=== PATIENT | male | born 1975 | race Caucasian/White ===

== ENCOUNTER 2019-05-19 11:56 | Emergency (ER) | payer OTHER ==
[~2019-05-19 11:56] MED LIST: HYDR-3164 PO
[2019-05-19 12:04] VITALS: BP 154/78
--- NOTE | 2019-05-19 12:31 | RAD ---
Exam performed: 2 views of the chest. Indication: Cough, shortness of air, sinus infection for 2 weeks Date of Service: 05/19/2019 12:10 PM . Comparison : Two-view chest from 07/01/2014. Findings: PA and lateral radiographs of the chest reveal a normal cardiomediastinal contour. The lungs are clear. No pleural fluid is seen. The visualized osseous structures are unremarkable. Impression: No acute cardiopulmonary process seen. Electronically signed by: Megha Resendiz MD (05/19/2019 12:28 PM) [facility]
[2019-05-19] MEDS ORDERED: AMOX1TAB61 PO (12:33)
[2019-05-19] MEDS ORDERED: PRED50TA PO (12:33)
[2019-05-19] MEDS ORDERED: PROVENTIL HFA6.7 G2 INH (12:33)
[2019-05-19] MEDS ORDERED: BENZ100C PO (12:33)
--- NOTE | 2019-05-19 12:34 | PHYS DOC ---
Past Medical History Past Medical History: High Cholesterol, Hypertension, Other Additional Past Medical Histor: BPH Past Surgical History: Other Additional Past Surgical Histo: left shoulder Alcohol Use: None Drug Use: None Adult General Chief Complaint Chief Complaint: COUGH HPI HPI Patient is a 43 year old male with history of high cholesterol, hypertension, smoking, who presents to the ED today complaining of cough productive in nature with nasal congestion that began 2 weeks ago. Patient believes he has a sinus infection. He is complaining of sinus pressure on the forehead as well as the left maxillary region. Patient denies any fever. He reports he was seen by the PCP yesterday but that was for medication refill and he did not mention any of his symptoms to the doctor. He reports this morning his symptoms got worse. Review of Systems Review of Systems Constitutional: Denies fever or chills [] Eyes: Denies change in visual acuity, redness, or eye pain [] HENT: Reports nasal congestion denies sore throat [] Respiratory: Reports cough denies shortness of breath [] Cardiovascular: No additional information not addressed in HPI [] GI: Denies abdominal pain, nausea, vomiting, bloody stools or diarrhea [] : Denies dysuria or hematuria [] Musculoskeletal: Denies back pain or joint pain [] Integument: Denies rash or skin lesions [] Neurologic: Denies headache, focal weakness or sensory changes [] All other systems were reviewed and found to be within normal limits, except as documented in this note. Allergies Allergies Allergies Coded Allergies Type Severity Reaction Last Updated Verified No Known Drug Allergies 09/16/14 No Physical Exam Physical Exam Constitutional: Well developed, well nourished, no acute distress, non-toxic appearance. [] HENT: Normocephalic, atraumatic, bilateral external ears normal, oropharynx moist, no oral exudates, nasal bridge appears deformed chronically. Mild left frontal and left maxillary sinus tenderness. Eyes: PERRLA, EOMI, conjunctiva normal, no discharge. [] Neck: Normal range of motion, no tenderness, supple, no stridor. [] Cardiovascular:Heart rate regular rhythm, no murmur [] Lungs & Thorax: Bilateral breath sounds clear to auscultation [] Abdomen: Bowel sounds normal, soft, no tenderness, no masses, no pulsatile masses. [] Skin: Warm, dry, no erythema, no rash. [] Back: No tenderness, no CVA tenderness. [] Extremities: No tenderness, no cyanosis, no clubbing, ROM intact, no edema. [] Neurologic: Alert and oriented X 3, normal motor function, normal sensory function, no focal deficits noted. [] Psychologic: Affect normal, judgement normal, mood normal. [] Current Patient Data Vital Signs Vital Signs Date Time Temp Pulse Resp B/P (MAP) Pulse Ox O2 Delivery O2 Flow Rate FiO2 05/19/19 12:04 97.8 94 18 154/78 (103) 99 Room Air 97.8 EKG EKG [] Radiology/Procedures Radiology/Procedures []PROCEDURE: CHEST PA & LATERAL Exam performed: 2 views of the chest. Indication: Cough, shortness of air, sinus infection for 2 weeks Date of Service: 05/19/2019 12:10 PM . Comparison : Two-view chest from 07/01/2014. Findings: PA and lateral radiographs of the chest reveal a normal cardiomediastinal contour. The lungs are clear. No pleural fluid is seen. The visualized osseous structures are unremarkable. Impression: No acute cardiopulmonary process seen. Electronically signed by: Megha Resendiz MD (05/19/2019 12:28 PM) [facility] DICTATED and SIGNED BY: MEGHA RESENDIZ MD DATE: 05/19/19 1228 Course & Med Decision Making Course & Med Decision Making Pertinent Labs and Imaging studies reviewed. (See chart for details) This is a 43-year-old male patient presented to the ED today with complaints of nasal congestion and a cough that began 2 weeks ago. Patient concerned he has sinus infection. He is a smoker, encouraged to consider smoking cessation. Discharged on Augmentin. Also given prescription for prednisone and albuterol inhaler and Tessalon Perles. Follow-up with primary care doctor in the next 1 week. Dragon Disclaimer Dragon Disclaimer This electronic medical record was generated, in whole or in part, using a voice recognition dictation system. Departure Departure Impression: Primary Impression: Sinusitis, acute Additional Impressions: Smoking addiction Bronchitis, acute Disposition: 01 HOME, SELF-CARE Condition: STABLE Referrals: NO PCP (PCP) follow up with your doctor next week Patient Instructions: Acute Bronchitis, Sinusitis, Smoking Cessation, Tips For Success Additional Instructions: You were evaluated in the emergency room for bronchitis and a sinus infection. Consider smoking cessation. Use the prescribed medications as ordered. Follow-up with your own doctor in 1-2 weeks. Scripts Amoxicillin/Potassium Clav (AUGMENTIN 875-125 TABLET) 1 Each Tablet 1 TAB PO BID for 10 Days, #20 TAB 0 Refills Prov: DONELL MELCHOR APRN 05/19/19 Prednisone (PREDNISONE) 50 Mg Tablet 1 TAB PO DAILY, #5 TAB Prov: DONELL MELCHOR APRN 05/19/19 Benzonatate (TESSALON PERLE) 100 Mg Capsule 1 CAP PO TID, #30 CAP Prov: DONELL MELCHOR APRN 05/19/19 Albuterol Sulfate (Proventil Hfa) 6.7 Gm Hfa.aer.ad 1 PUFF INH PRN Q6HRS PRN for SHORTNESS OF BREATH, #1 INHALER Prov: DONELL MELCHOR APRN 05/19/19 Problem Qualifiers Primary Impression: Sinusitis, acute Sinusitis location: maxillary Recurrence: non-recurrent Qualified Codes: J01.00 - Acute maxillary sinusitis, unspecified Additional Impressions: Bronchitis, acute Bronchitis organism: unspecified organism Qualified Codes: J20.9 - Acute bronchitis, unspecified DONELL MELCHOR APRN May 19, 2019 12:34
== END 2019-05-19 12:41 | disposition home or self-care (01) ==
LOC: ER 11:56
DX: J01.00 Acute maxillary sinusitis, unspecified (principal); J20.9 Acute bronchitis, unspecified; E78.00 Pure hypercholesterolemia, unspecified; I10 Essential (primary) hypertension; F17.200 Nicotine dependence, unspecified, uncomplicated
CPT/HCPCS: 71046; 99284

== ENCOUNTER 2019-11-16 14:35 | Emergency (ER) | payer OTHER ==
[~2019-11-16] VITALS: Ht 172.7 cm; Wt 68.2 kg
[~2019-11-16 14:35] MED LIST changes: +AMOX1TAB61 PO; +BENZ100C PO; +PRED50TA PO; +PROVENTIL HFA6.7 G2 INH
[2019-11-16 15:25] LABS: BASO % 0 % (0-3); EOS % 0 % (0-3); HEMATOCRIT 42.6 % (39.0-53.0); HEMOGLOBIN 14.8 g/dL (13.0-17.5); LYMPH # 1.9 x10^3/uL (1.0-4.8); LYMPH % 16 % (24-48); MEAN CORPUSCULAR HEMOGLOBIN 31 pg (25-35); MEAN CORPUSCULAR HGB CONC 35 g/dL (31-37); MEAN CORPUSCULAR VOLUME 89 fL (79-100); MONO # 0.8 x10^3/uL (0.0-1.1); MONO % 6 % (0-9); NEUT # 9.8 x10^3/uL (1.8-7.7); NEUT % 78 % (31-73); PLATELET COUNT 293 x10^3/uL (140-400); RED CELL DISTRIBUTION WIDTH 13.4 % (11.5-14.5); WHITE BLOOD COUNT 12.6 x10^3/uL (4.0-11.0)
--- NOTE | 2019-11-16 15:26 | PHYS DOC ---
Past Medical History Past Medical History: High Cholesterol, Hypertension, Other Additional Past Medical Histor: BPH Past Surgical History: Other Additional Past Surgical Histo: left shoulder Smoking Status: Current Every Day Smoker Alcohol Use: None Drug Use: None General Adult EDM: Chief Complaint: SHORTNESS OF BREATH HPI: HPI: 44-year-old male presents emergency department today with a productive cough with shortness of breath and fatigue over the past 24 hours. He denies any recent known exposures to COVID-19. He denies any chest pain. Location lungs. Duration intermittent. No alleviating factors. His shortness of breath is much better now than last night. It is not worse with exertion. Review of systems negative for abdominal pain vomiting fevers chills or headache. All other review of systems negative. ED course: 44-year-old male presenting with shortness of breath and cough. On arrival he is afebrile satting well on room air with unlabored breathing breathing and resting comfortably in the examination room without any distress. Chest x-ray unremarkable. Blood work shows mild leukocytosis. Troponin within normal limits. D-dimer within normal limits. Patient is breathing comfortably. EKG reviewed by myself shows sinus rhythm with a regular rate. ST segments not suggestive of ACS. On reexamination the patient continues to be breathing comfortably without any distress. Will discharge patient to follow-up with PCP in 1 to 2 days. In the interim the patient should quarantine until COVID test comes back. Heart Score: Risk Factors: Risk Factors: DM, Current or recent (<one month) smoker, HTN, HLP, family history of CAD, obesity. Risk Scores: Score 0 - 3: 2.5% MACE over next 6 weeks - Discharge Home Score 4 - 6: 20.3% MACE over next 6 weeks - Admit for Clinical Observation Score 7 - 10: 72.7% MACE over next 6 weeks - Early Invasive Strategies Allergies: Allergies: Allergies Coded Allergies Type Severity Reaction Last Updated Verified No Known Drug Allergies 09/16/14 No Physical Exam: PE: Constitutional: Well developed, well nourished, no acute distress, non-toxic appearance. HENT: Normocephalic, atraumatic, bilateral external ears normal, oropharynx moist, no oral exudates, nose normal. [] Eyes: PERRLA, EOMI, conjunctiva normal, no discharge. Neck: Normal range of motion, no tenderness, supple, no stridor. [] Cardiovascular:Heart rate regular rhythm, no murmur Lungs & Thorax: Bilateral breath sounds clear to auscultation [] Abdomen: Bowel sounds normal, soft, no tenderness, no masses, no pulsatile masses. Skin: Warm, dry, no erythema, no rash. [] Back: No tenderness, no CVA tenderness. [] Extremities: No tenderness, no cyanosis, no clubbing, ROM intact, no edema. Neurologic: Alert and oriented X 3, normal motor function, normal sensory f unction, no focal deficits noted. [] Psychologic: Affect normal, judgement normal, mood normal. [] Current Patient Data: Vital Signs: Vital Signs Date Time Temp Pulse Resp B/P (MAP) Pulse Ox O2 Delivery O2 Flow Rate FiO2 11/16/19 14:40 97.4 88 20 144/78 (100) 100 Room Air 97.4 EKG: EKG: [] Radiology/Procedures: Radiology/Procedures: [] Course & Med Decision Making: Course & Med Decision Making Pertinent Labs and Imaging studies reviewed. (See chart for details) [] Dragon Disclaimer: [employer] Disclaimer: This electronic medical record was generated, in whole or in part, using a voice recognition dictation system. Departure Departure Impression: Primary Impression: Suspected 2019 novel coronavirus infection Disposition: HOME, SELF-CARE Condition: STABLE Referrals: NO PCP (PCP) Additional Instructions: Thank you for visiting [facility] We appreciate you trusting us with your care. If any additional problems come up please don't hesitate to return to visit us. Follow up with your primary care provider so they can plan additional care if needed and know about the problem that you had today. If symptoms worsen come back to the Emergency Department. Any concerning symptoms that start such as chest pain, shortness of air, weakness or numbness on one side of the body, running high fevers or any other concerning symptoms return to the ER. You have a viral syndrome which may include symptoms like muscle aches, fevers, chills, runny nose, cough, sneezing, sore throat, nausea, vomiting, or diarrhea. One of the potential viruses that you may have is SARS-CoV-2, the virus that causes COVID-19, also known as the Coronavirus. You could also have a different viral infection such as the common cold, flu, etc. Most patients with the Coronavirus have mild symptoms and recover on their own. Resting, staying hydrated, and sleep based on known cases can be helpful. As of todays visit, you are well enough to go home and treat your symptoms with oral fluids and over the counter medications. Please follow the following precautions at home: 1) Stay home except to get medical care. 2) As advised by the CDC, we recommend that you stay in your home and minimize contact with other people. We do not want you to spread the infection. 3) Those who are older or have significant medical issues may have more severe symptoms from this infection. We recommend self-isolation FOR AT LEAST 7 DAYS after your 1st day of symptoms. AFTER you feel better please wait AT LEAST ANOTHER 3 days before returning to regular activities and being around other p eople. 4) IF you become sicker and have difficulty breathing, chest pain, are unable to eat/drink, severe vomiting, diarrhea, or weakness you may need to return to the Emergency Department. 5) You should restrict activities outside of your home, except for getting medical care. DO NOT go to work, school, or public areas. Avoid using public transportation, ride sharing, or taxis. 6) Separate yourself from other people in your home. You should use a separate bathroom if possible. 7) Avoid sharing personal household items such as dishes, cups, eating utensils, towels, etc. 8) Clean all high touch surfaces every day (door knobs, counter tops, etc). Use a household cleaning spray or wipe per label instructions. 9) Clean your hands often. Wash your hands with soap and water for at least 20 seconds. 10) Cover your mouth and nose when you cough or sneeze. 11) Throw used tissues in the trash and immediately wash your hands. For additional resources please visit the CDC website or the [place] [facility] ([phone]), you may also call 311 for further information. Justicifation of Admission Dx: Justifications for Admission: Justification of Admission Dx: JEFFERY Bella MD Nov 16, 2019 15:26
[2019-11-16 15:36] LABS: CALCIUM 9.2 mg/dL (8.5-10.1); CREATININE 1.1 mg/dL (0.7-1.3); GFR 72.1
--- NOTE | 2019-11-16 15:39 | RAD ---
EXAM: CHEST ONE VIEW. HISTORY: Shortness of breath. COMPARISON: 05/19/2019. FINDINGS: A frontal view of the chest is obtained. There are no confluent infiltrates. There is no pneumothorax or pleural effusion. The heart is not enlarged. 2 screws are noted in the left proximal humerus. There are chronic left posterior rib fractures. There are atherosclerotic calcifications of the aorta. IMPRESSION: 1. No confluent infiltrates. Electronically signed by: Del Anglin MD (11/16/2019 3:36 PM) [id number]
[2019-11-16] MEDS ORDERED: POTA10TA12 PO (16:44)
[2019-11-16 16:51] VITALS: BP 184/88
--- NOTE | 2019-11-19 06:29 | EKG ---
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
== END 2019-11-16 17:05 | disposition home or self-care (01) ==
LOC: ER 14:35
DX: Z20.828 Contact with and (suspected) exposure to other viral communicable diseases (principal); I10 Essential (primary) hypertension; E78.00 Pure hypercholesterolemia, unspecified; F17.200 Nicotine dependence, unspecified, uncomplicated
CPT/HCPCS: 36415; 71045; 80048; 83690; 84484; 85025; 85379; 93005; 99285; U0003

== ENCOUNTER 2019-11-21 07:31 | Emergency (ER) | payer OTHER ==
[~2019-11-21] VITALS: Ht 172.7 cm; Wt 68.2 kg
[~2019-11-21 07:31] MED LIST changes: +POTA10TA12 PO
[2019-11-21] MEDS ORDERED: POTASSIUM CHLORIDE 20 MEQ TABLET.ER. PO ONE (08:00)
[2019-11-21] MEDS ORDERED: IV NORMAL SALINE 1000ML BAG 1,000 ML IV ONE (08:00)
[2019-11-21] MEDS ORDERED: ONDANSETRON PF 4 MG/2 ML VIAL. IVP ONE (08:00)
--- NOTE | 2019-11-21 08:03 | PHYS DOC ---
Past Medical History Past Medical History: High Cholesterol, Hypertension, Other Additional Past Medical Histor: BPH Past Surgical History: Other Additional Past Surgical Histo: left shoulder Smoking Status: Current Every Day Smoker Alcohol Use: None Drug Use: None General Adult EDM: Chief Complaint: ABDOMINAL PAIN HPI: HPI: Patient is a 44 year old male who presented to ER today for evaluation of nausea vomiting abdominal pain diarrhea since last . Patient denies any fever, no cough, no chills today. Patient was seen here on November 15 with fever and chill. He was tested negative for COVID-19. Patient do have history of diverticulitis in the past. Patient denies any blood in his stool. Review of Systems: Review of Systems: Constitutional: Denies fever or chills. [] Eyes: Denies change in visual acuity. [] HENT: Denies nasal congestion or sore throat. [] Respiratory: Denies cough or shortness of breath. [] Cardiovascular: Denies chest pain or edema. [] GI: Positive for abdominal pain, nausea vomiting and diarrhea. : Denies dysuria. [] Musculoskeletal: Denies back pain or joint pain. [] Integument: Denies rash. [] Neurologic: Denies headache, focal weakness or sensory changes. [] Endocrine: Denies polyuria or polydipsia. [] Lymphatic: Denies swollen glands. [] Psychiatric: Denies depression or anxiety. [] Heart Score: Risk Factors: Risk Factors: DM, Current or recent (<one month) smoker, HTN, HLP, family history of CAD, obesity. Risk Scores: Score 0 - 3: 2.5% MACE over next 6 weeks - Discharge Home Score 4 - 6: 20.3% MACE over next 6 weeks - Admit for Clinical Observation Score 7 - 10: 72.7% MACE over next 6 weeks - Early Invasive Strategies Current Medications: Current Medications Medications (Trade) Dose Ordered Sig/Kathia Start Time Stop Time Status Last Admin Dose Admin Ondansetron HCl (Zofran) 4 mg 1X ONCE 11/21/19 08:00 11/21/19 08:01 UNV Sodium Chloride 1,000 ml @ 1,000 mls/hr 1X ONCE 11/21/19 08:00 11/21/19 08:59 UNV Allergies: Allergies: Allergies Coded Allergies Type Severity Reaction Last Updated Verified No Known Drug Allergies 09/16/14 No Physical Exam: PE: Constitutional: Well developed, well nourished, no acute distress, non-toxic appearance. [] HENT: Normocephalic, atraumatic, bilateral external ears normal, oropharynx moist, no oral exudates, nose normal. [] Eyes: PERRLA, EOMI, conjunctiva normal, no discharge. [] Neck: Normal range of motion, no tenderness, supple, no stridor. [] Cardiovascular:Heart rate regular rhythm, no murmur [] Lungs & Thorax: Bilateral breath sounds clear to auscultation [] Abdomen: Bowel sounds normal, soft, there is tenderness to palpation on left lower quadrant area, no rebound, no guarding, no masses, no pulsatile masses. [] Skin: Warm, dry, no erythema, no rash. [] Back: No tenderness, no CVA tenderness. [] Extremities: No tenderness, no cyanosis, no clubbing, ROM intact, no edema. [] Neurologic: Alert and oriented X 3, normal motor function, normal sensory function, no focal deficits noted. [] Psychologic: Affect normal, judgement normal, mood normal. [] Current Patient Data: Labs: Laboratory Tests Test 11/21/19 08:20 11/21/19 09:25 White Blood Count 9.9 x10^3/uL Red Blood Count 5.01 x10^6/uL Hemoglobin 15.4 g/dL Hematocrit 44.5 % Mean Corpuscular Volume 89 fL Mean Corpuscular Hemoglobin 31 pg Mean Corpuscular Hemoglobin Concent 35 g/dL Red Cell Distribution Width 13.7 % Platelet Count 302 x10^3/uL Neutrophils (%) (Auto) 64 % Lymphocytes (%) (Auto) 29 % Monocytes (%) (Auto) 6 % Eosinophils (%) (Auto) 1 % Basophils (%) (Auto) 0 % Neutrophils # (Auto) 6.4 x10^3/uL Lymphocytes # (Auto) 2.9 x10^3/uL Monocytes # (Auto) 0.6 x10^3/uL Eosinophils # (Auto) 0.1 x10^3/uL Basophils # (Auto) 0.0 x10^3/uL Prothrombin Time 13.5 SEC Prothromb Time International Ratio 1.1 Activated Partial Thromboplast Time 22 SEC Sodium Level 137 mmol/L Potassium Level 3.0 mmol/L Chloride Level 103 mmol/L Carbon Dioxide Level 25 mmol/L Anion Gap 9 Blood Urea Nitrogen 13 mg/dL Creatinine 0.9 mg/dL Estimated GFR (Cockcroft-Gault) 90.8 BUN/Creatinine Ratio 14 Glucose Level 111 mg/dL Calcium Level 8.5 mg/dL Total Bilirubin 0.6 mg/dL Aspartate Amino Transf (AST/SGOT) 10 U/L Alanine Aminotransferase (ALT/SGPT) 19 U/L Alkaline Phosphatase 59 U/L Total Protein 7.0 g/dL Albumin 3.7 g/dL Albumin/Globulin Ratio 1.1 Lipase 211 U/L Urine Collection Type Unknown Urine Color Yellow Urine Clarity Clear Urine pH 6.5 Urine Specific [place] 1.010 Urine Protein Negative mg/dL Urine Glucose (UA) Negative mg/dL Urine Ketones (Stick) Negative mg/dL Urine Blood Negative Urine Nitrite Negative Urine Bilirubin Negative Urine Urobilinogen Dipstick 0.2 mg/dL Urine Leukocyte Esterase Negative Urine RBC 0 /HPF Urine WBC 0 /HPF Urine Squamous Epithelial Cells Few /LPF Urine Bacteria 0 /HPF Urine Mucus Mod /LPF Current Medications Medications (Trade) Dose Ordered Sig/Kathia Route PRN Reason Start Time Stop Time Status Last Admin Dose Admin Sodium Chloride 1,000 ml @ 1,000 mls/hr 1X ONCE IV 11/21/19 08:00 11/21/19 08:59 DC 11/21/19 08:29 Ondansetron HCl (Zofran) 4 mg 1X ONCE IVP 11/21/19 08:00 11/21/19 08:04 DC 11/21/19 08:33 Iohexol (Omnipaque 300 Mg/ml) 75 ml 1X ONCE IV 11/21/19 09:15 11/21/19 09:16 DC 11/21/19 09:27 Ketorolac Tromethamine (Toradol 30mg Vial) 30 mg 1X ONCE IVP 11/21/19 11:30 11/21/19 11:31 DC Potassium Chloride (Klor-Con) 40 meq 1X ONCE PO 11/21/19 08:00 11/21/19 11:19 DC EKG: EKG: [] Radiology/Procedures: Radiology/Procedures: [][facility] [address] [place], [place] [id number] IMAGING REPORT Signed PATIENT: ETHAN GUPTA DACCOUNT: [id number] : 1975 LOCATION: ER AGE: 44 SEX: M EXAM STATUS: REG ER ORD. PHYSICIAN: PANCHO VILLASENOR DO REASON: LLQ ABDOMINAL PAIN, HX OF DIVERTICULITIS PROCEDURE: CT ABD PELV W/ IV CONTRST ONLY CT abdomen and pelvis with contrast History: Left lower quadrant abdominal pain, history of diverticulitis Technique: After the administration of intravenous contrast, CT imaging was performed of the abdomen and pelvis. No oral contrast was given. Multiplanar images are reviewed. Exposure: One or more of the following individualized dose reduction techniques were utilized for this examination: 1. Automated exposure control 2. Adjustment of the mA and/or kV according to patient size 3. Use of iterative reconstruction technique. Comparison: November 09, 2009 Findings: There is no significant abnormality of the visualized lung bases. There is small fat-containing left Bochdalek hernia. There is no significant abnormality of the spleen or pancreas. Small hypodense lesion of the posterior right lobe of the liver about 0.5 cm image 14 series 2 is too small to further characterize and difficult to confidently visualize on previous exam. There is 2.2 cm right adrenal nodule, somewhat larger as previously about 1.6 cm cc. Both kidneys enhance without hydronephrosis. There is likely small 0.2 cm inferior left renal calculus. There are also likely 3 small, less than 0.2 cm right renal calculi. There is a 0.3 cm calculus in the left pelvis image 34 series 2 which may be in the distal left ureter. Gallbladder is present without obvious intraluminal abnormality by CT. Accurate evaluation of bowel is limited without oral contrast. There is no significant inflammatory change adjacent to the bowel. There is no evidence of bowel obstruction, free fluid, or free air. Normal caliber appendix is visualized. There is some variable retained stool in the colon. There is appearance of degree of wall prominence of small bowel in the left abdomen. There is a very small 0.4 cm focus of nonspecific sclerosis of the left iliac bone, not apparent on previous 2009 exam, cannot further characterize. Impression: 1. Not associated with hydronephrosis, small 0.3 cm calculus in the left pelvis may be in the distal left ureter. There are small likely nonobstructive bilateral renal calculi. 2. Right adrenal nodule is larger, thin section noncontrast, nonemergent CT advised. 3. There is no significant localized inflammatory type change about the bowel. While there could be due to degree of small bowel wall thickening in the left abdomen as could be seen with enteritis in the appropriate clinical setting, findings could be due to incomplete distention and peristalsis during exam. 4. Small hypodense lesion of the right lobe liver is too small to further characterize. Electronically signed by: Christiana Louis MD (11/21/2019 9:56 AM) [id number] DICTATED and SIGNED BY: CHRISTIANA LOUIS MD DATE: 11/21/19 0956 Course & Med Decision Making: Course & Med Decision Making Pertinent Labs and Imaging studies reviewed. (See chart for details) Patient is a 44-year-old male who was evaluated in the ER due to abdominal pain with nausea vomiting diarrhea. CT scan showed a small kidney stone on the left ureteral area, also he might have some gastroenteritis pattern. Patient feel much better now, we will discharge him home. Patient potassium level was low, he was given potassium p.o. in the ER, patient feels much better, will discharge home. Dragon Disclaimer: Dragon Disclaimer: This electronic medical record was generated, in whole or in part, using a voice recognition dictation system. Departure Departure Impression: Primary Impression: Gastroenteritis Additional Impression: Kidney stone on left side Disposition: 01 HOME, SELF-CARE Condition: IMPROVED Referrals: NO PCP (PCP) please follow up with your doctor for a referral to UROLOGIST NEXT WEEK. Patient Instructions: Kidney Stones, Viral Gastroenteritis Additional Instructions: Thank you for visiting our Emergency Department. We appreciate you trusting us with your care. If any additional problems come up don't hesitate to return to visit us. Please follow up with your primary care provider so they can plan additional care if needed and know about the problem that you had. If symptoms worsen come back to the Emergency Department. Any concerning symptoms that start such as chest pain, shortness of air, weakness or numbness on one side of the body, running high fevers or any other concerning symptoms return to the ER. PLEASE CALL [facility] UROLOGY DEPARTMENT FOR FOLLOW UP THIS WEEK. The phone number is [phone] Scripts Naproxen Sodium (ANAPROX DS) 550 Mg Tablet 1 TAB PO BID PRN for PAIN for 15 Days, #30 TAB 0 Refills Prov: PANCHO VILLASENOR DO 11/21/19 Justicifation of Admission Dx: Justifications for Admission: Justification of Admission Dx: N/A PANCHO VILLASENOR DO Nov 21, 2019 08:03
[2019-11-21 08:40] LABS: BASO % 0 % (0-3); EOS # 0.1 x10^3/uL (0.0-0.7); EOS % 1 % (0-3); HEMATOCRIT 44.5 % (39.0-53.0); HEMOGLOBIN 15.4 g/dL (13.0-17.5); LYMPH # 2.9 x10^3/uL (1.0-4.8); LYMPH % 29 % (24-48); MEAN CORPUSCULAR HEMOGLOBIN 31 pg (25-35); MEAN CORPUSCULAR HGB CONC 35 g/dL (31-37); MEAN CORPUSCULAR VOLUME 89 fL (79-100); MONO # 0.6 x10^3/uL (0.0-1.1); MONO % 6 % (0-9); NEUT # 6.4 x10^3/uL (1.8-7.7); NEUT % 64 % (31-73); PLATELET COUNT 302 x10^3/uL (140-400); RED BLOOD COUNT 5.01 x10^6/uL (4.30-5.70); RED CELL DISTRIBUTION WIDTH 13.7 % (11.5-14.5); WHITE BLOOD COUNT 9.9 x10^3/uL (4.0-11.0)
[2019-11-21 08:53] LABS: PROTHROMBIN TIME PATIENT 13.5 SEC (11.7-14.0)
[2019-11-21 09:03] LABS: CALCIUM 8.5 mg/dL (8.5-10.1); CREATININE 0.9 mg/dL (0.7-1.3); GFR 90.8
[2019-11-21 09:09] LABS: ALBUMIN 3.7 g/dL (3.4-5.0); ALBUMIN/GLOBULIN RATIO 1.1 (1.0-1.7); TOTAL BILIRUBIN 0.6 mg/dL (0.2-1.0)
[2019-11-21] MEDS ORDERED: IOHEXOL 300 MG/ML 100ML VIAL. IV ONE (09:15)
[2019-11-21 09:42] LABS: BILIRUBIN,URINE NEGATIVE (NEG); CLARITY,URINE CLEAR; COLOR,URINE YELLOW; NITRITE,URINE NEGATIVE (NEG); PH,URINE 6.5 (<5.0-8.0); PROTEIN,URINE NEGATIVE (NEG-TRACE); UROBILINOGEN,URINE 0.2 mg/dL (0.2 mg/dL)
[2019-11-21 09:52] LABS: BACTERIA,URINE 0 /HPF (0-FEW); RBC,URINE 0 /HPF (0-2); SQUAMOUS EPITHELIAL CELL,UR FEW /LPF; WBC,URINE 0 /HPF (0-4)
--- NOTE | 2019-11-21 09:59 | RAD ---
CT abdomen and pelvis with contrast History: Left lower quadrant abdominal pain, history of diverticulitis Technique: After the administration of intravenous contrast, CT imaging was performed of the abdomen and pelvis. No oral contrast was given. Multiplanar images are reviewed. Exposure: One or more of the following individualized dose reduction techniques were utilized for this examination: 1. Automated exposure control 2. Adjustment of the mA and/or kV according to patient size 3. Use of iterative reconstruction technique. Comparison: November 09, 2009 Findings: There is no significant abnormality of the visualized lung bases. There is small fat-containing left Bochdalek hernia. There is no significant abnormality of the spleen or pancreas. Small hypodense lesion of the posterior right lobe of the liver about 0.5 cm image 14 series 2 is too small to further characterize and difficult to confidently visualize on previous exam. There is 2.2 cm right adrenal nodule, somewhat larger as previously about 1.6 cm cc. Both kidneys enhance without hydronephrosis. There is likely small 0.2 cm inferior left renal calculus. There are also likely 3 small, less than 0.2 cm right renal calculi. There is a 0.3 cm calculus in the left pelvis image 34 series 2 which may be in the distal left ureter. Gallbladder is present without obvious intraluminal abnormality by CT. Accurate evaluation of bowel is limited without oral contrast. There is no significant inflammatory change adjacent to the bowel. There is no evidence of bowel obstruction, free fluid, or free air. Normal caliber appendix is visualized. There is some variable retained stool in the colon. There is appearance of degree of wall prominence of small bowel in the left abdomen. There is a very small 0.4 cm focus of nonspecific sclerosis of the left iliac bone, not apparent on previous 2010 exam, cannot further characterize. Impression: 1. Not associated with hydronephrosis, small 0.3 cm calculus in the left pelvis may be in the distal left ureter. There are small likely nonobstructive bilateral renal calculi. 2. Right adrenal nodule is larger, thin section noncontrast, nonemergent CT advised. 3. There is no significant localized inflammatory type change about the bowel. While there could be due to degree of small bowel wall thickening in the left abdomen as could be seen with enteritis in the appropriate clinical setting, findings could be due to incomplete distention and peristalsis during exam. 4. Small hypodense lesion of the right lobe liver is too small to further characterize. Electronically signed by: Chavez Nguyen MD (11/21/2019 9:56 AM) [id number]
[2019-11-21] MEDS ORDERED: KETOROLAC 30 MG/ML VIAL. IVP ONE (11:30)
[2019-11-21 11:45] VITALS: BP 178/104
[2019-11-21] MEDS ORDERED: NAPR-682 PO (11:53)
== END 2019-11-21 12:05 | disposition home or self-care (01) ==
LOC: ER 07:31
DX: N13.2 Hydronephrosis with renal and ureteral calculous obstruction (principal); K52.9 Noninfective gastroenteritis and colitis, unspecified; R11.2 Nausea with vomiting, unspecified; R10.32 Left lower quadrant pain; E78.00 Pure hypercholesterolemia, unspecified; I10 Essential (primary) hypertension; F17.200 Nicotine dependence, unspecified, uncomplicated; Z98.890 Other specified postprocedural states
CPT/HCPCS: 36415; 74177; 80053; 81001; 83690; 85025; 85610; 85730; 96361; 96374; 96375; 99285; J1885; J2405; J7030; Q9967

== ENCOUNTER 2020-05-21 18:48 | Emergency (ER) | payer OTHER ==
[~2020-05-21] VITALS: Ht 172.7 cm; Wt 68.0 kg
[~2020-05-21 18:48] MED LIST changes: +NAPR-682 PO
[2020-05-21 19:05] VITALS: BP 177/106
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
[2020-05-21 19:31] LABS: BASO % 1 % (0-3); EOS # 0.2 x10^3/uL (0.0-0.7); EOS % 3 % (0-3); HEMATOCRIT 39.7 % (39.0-53.0); HEMOGLOBIN 13.5 g/dL (13.0-17.5); LYMPH # 3.2 x10^3/uL (1.0-4.8); LYMPH % 43 % (24-48); MEAN CORPUSCULAR HEMOGLOBIN 32 pg (25-35); MEAN CORPUSCULAR HGB CONC 34 g/dL (31-37); MEAN CORPUSCULAR VOLUME 93 fL (79-100); MONO # 0.5 x10^3/uL (0.0-1.1); MONO % 6 % (0-9); NEUT # 3.7 x10^3/uL (1.8-7.7); NEUT % 48 % (31-73); PLATELET COUNT 247 x10^3/uL (140-400); RED BLOOD COUNT 4.26 x10^6/uL (4.30-5.70); WHITE BLOOD COUNT 7.6 x10^3/uL (4.0-11.0)
[2020-05-21 19:50] LABS: CALCIUM 8.8 mg/dL (8.5-10.1); CREATININE 0.8 mg/dL (0.7-1.3); GFR 104.1; POTASSIUM 3.4 mmol/L (3.5-5.1)
[2020-05-21 19:56] LABS: ALBUMIN 4.1 g/dL (3.4-5.0); ALBUMIN/GLOBULIN RATIO 1.3 (1.0-1.7); TOTAL BILIRUBIN 0.2 mg/dL (0.2-1.0); TOTAL PROTEIN 7.2 g/dL (6.4-8.2)
== END 2020-05-21 20:40 | disposition home or self-care (01) ==
LOC: ER 18:48
DX: F15.10 Other stimulant abuse, uncomplicated (principal); R20.2 Paresthesia of skin; E78.00 Pure hypercholesterolemia, unspecified; I10 Essential (primary) hypertension; F17.200 Nicotine dependence, unspecified, uncomplicated; Z98.890 Other specified postprocedural states
CPT/HCPCS: 36415; 80053; 82962; 84484; 85025; 93005; 99284

== ENCOUNTER 2020-05-26 20:46 | Emergency (ER) | payer OTHER ==
[~2020-05-26] VITALS: Ht 172.7 cm; Wt 68.2 kg
[2020-05-26 22:27] LABS: BASO # 0.1 x10^3/uL (0.0-0.2); BASO % 1 % (0-3); EOS # 0.2 x10^3/uL (0.0-0.7); EOS % 1 % (0-3); HEMATOCRIT 40.4 % (39.0-53.0); HEMOGLOBIN 13.6 g/dL (13.0-17.5); LYMPH # 4.5 x10^3/uL (1.0-4.8); LYMPH % 37 % (24-48); MEAN CORPUSCULAR HEMOGLOBIN 31 pg (25-35); MEAN CORPUSCULAR HGB CONC 34 g/dL (31-37); MEAN CORPUSCULAR VOLUME 93 fL (79-100); MONO # 1.2 x10^3/uL (0.0-1.1); MONO % 10 % (0-9); NEUT # 6.1 x10^3/uL (1.8-7.7); NEUT % 51 % (31-73); PLATELET COUNT 260 x10^3/uL (140-400); RED BLOOD COUNT 4.34 x10^6/uL (4.30-5.70); RED CELL DISTRIBUTION WIDTH 12.5 % (11.5-14.5)
[2020-05-26 22:37] LABS: CALCIUM 9.2 mg/dL (8.5-10.1); GFR 80.4; POTASSIUM 4.7 mmol/L (3.5-5.1)
[2020-05-26 22:42] LABS: ALBUMIN 4.2 g/dL (3.4-5.0); ALBUMIN/GLOBULIN RATIO 1.3 (1.0-1.7); TOTAL BILIRUBIN 0.7 mg/dL (0.2-1.0); TOTAL PROTEIN 7.5 g/dL (6.4-8.2)
[2020-05-26] MEDS ORDERED: IOHEXOL 350 MG/ML 100 ML VIAL. IV ONE (23:00)
[2020-05-26] MEDS ORDERED: CONTRAST GIVEN. MC PRN (23:15)
--- NOTE | 2020-05-26 23:26 | RAD ---
Study: CT CHEST WITH CONTRAST - PULMONARY ANGIOGRAM History: Coughing blood Comparison: Chest radiograph 11/16/2019 Technique: Helical CT of the chest performed after the administration of 100 mL Omnipaque 350 intrav enous contrast and timed for angiographic evaluation of the pulmonary arteries per PE protocol. Coron al and sagittal 3D MIP reformations were obtained. One or more of the following individualized dose reduction techniques were utilized for this examinat ion: 1. Automated exposure control 2. Adjustment of the mA and/or kV according to patient size 3. Use of iterative reconstruction technique. Findings: Pulmonary Arteries: Contrast bolus is adequate. No acute pulmonary embolism. Heart/Systemic Vasculature: The heart is normal in size. No pericardial effusion. Thoracic aorta is n ormal in caliber. Mediastinum: No mediastinal or hilar lymphadenopathy. There is diffuse esophageal wall thickening. Lungs: There is mosaic attenuation, greatest in the lower lobes. There is a 7 mm geographic subpleura l groundglass opacity in the anterior right upper lobe. Airway flor are thickened. No pleural effusi on. Neck/Axilla/Body Wall: Normal. Upper Abdomen: 1.5 cm right adrenal adenoma. Bones: Multiple old healed left posterior rib fractures. There are surgical changes of the left humer al head. IMPRESSION: 1. No acute pulmonary embolism. 2. Diffuse esophageal wall thickening. This could be seen with esophagitis or malignancy. Correlatio n could be made with endoscopy. 3. Mosaic attenuation, bronchial wall thickening, and small subpleural groundglass opacity in the ri ght upper lobe. Findings are nonspecific but likely related to small airways disease. In a high risk patient, 6-12 month follow-up CT could be obtained to ensure stability/resolution of groundglass nodu le. 2017 Fleischner Society guidelines for management of incidental pulmonary nodules in adults over 35 y ears old. Radiology. Published online:?July 01, 2016 SUBSOLID NODULES Single < 6mm - No routine follow-up Single > 6mm - CT at 6-12 months to confirm persistence, the CT every 2 years until 5 years. Comment: In certain suspicious nodules <6mm, consider follow-up at 2 and 4 years. If solid components or growth develops, consider resection. *Clinical risk - These guidelines for nodule management are based on estimation of the individual ris k of malignancy. It is important to consider nodule size and morphology as well as smoking history, exposure to other carcinogens, emphysema, fibrosis, upper lobe location, family history of lung cance r, age, and sex is assessing clinical risk. For purposes of these guidelines it is recommended that risk be assigned according to the categories proposed by the [employer]. Low risk (less than 5%) - young age, less smoking, smaller nodule size, regular margins and location other than upper lobe. High risk (greater than 5%) - older age, heavy smoking, larger nodule size, irregular or spiculated m argins and upper lobe location. Electronically signed by: Rachael Ledezma MD (05/26/2020 11:23 PM) [id number]
[2020-05-26 23:30] VITALS: BP 104/52
[2020-05-27] MEDS ORDERED: ONDA4TAB12 PO (00:10)
[2020-05-27] MEDS ORDERED: OMEP20TA8 PO (00:10)
--- NOTE | 2020-05-27 00:10 | PHYS DOC ---
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 Denies any fever. Denies any abdominal pain chest pain or shortness of breath. Review of Systems: Review of Systems: Constitutional: Denies fever or chills. [] Eyes: Denies change in visual acuity. [] HENT: Denies nasal congestion or sore throat. [] Respiratory: Reports coughing up brownish stuff, denies shortness of breath. [] Cardiovascular: Denies chest pain or edema. [] GI: Denies abdominal pain, nausea, vomiting, bloody stools or diarrhea. [] : Denies dysuria. [] Musculoskeletal: Denies back pain or joint pain. [] Integument: Denies rash. [] Neurologic: Denies headache, focal weakness or sensory changes. [] Endocrine: Denies polyuria or polydipsia. [] Lymphatic: Denies swollen glands. [] Psychiatric: Denies depression or anxiety. [] Heart Score: Risk Factors: Risk Factors: DM, Current or recent (<one month) smoker, HTN, HLP, family history of CAD, obesity. Risk Scores: Score 0 - 3: 2.5% MACE over next 6 weeks - Discharge Home Score 4 - 6: 20.3% MACE over next 6 weeks - Admit for Clinical Observation Score 7 - 10: 72.7% MACE over next 6 weeks - Early Invasive Strategies Current Medications: Current Medications Medications (Trade) Dose Ordered Sig/Kathia Start Time Stop Time Status Last Admin Dose Admin Info (CONTRAST GIVEN -- Rx MONITORING) 1 each PRN DAILY PRN 05/26/20 23:15 05/28/20 23:14 Iohexol (Omnipaque 350 Mg/ml) 100 ml 1X ONCE 05/26/20 23:00 05/26/20 23:01 DC 05/26/20 22:59 100 ML Allergies: Allergies: Allergies Coded Allergies Type Severity Reaction Last Updated Verified No Known Drug Allergies 09/16/14 No Physical Exam: PE: Constitutional: Well developed, well nourished, no acute distress, non-toxic appearance. [] HENT: Normocephalic, atraumatic, bilateral external ears normal, oropharynx moist, no oral exudates, nose normal. [] Eyes: PERRLA, EOMI, conjunctiva normal, no discharge. [] Neck: Normal range of motion, no tenderness, supple, no stridor. [] Cardiovascular:Heart rate regular rhythm, no murmur [] Lungs & Thorax: Bilateral breath sounds clear to auscultation [] Abdomen: Bowel sounds normal, soft, no tenderness, no masses, no pulsatile masses. [] Skin: Warm, dry, no erythema, no rash. [] Back: No tenderness, no CVA tenderness. [] Extremities: No tenderness, no cyanosis, no clubbing, ROM intact, no edema. [] Neurologic: Alert and oriented X 3, normal motor function, normal sensory function, no focal deficits noted. [] Psychologic: Affect normal, judgement normal, mood normal. [] Current Patient Data: Labs: Laboratory Tests Test 05/26/20 22:20 White Blood Count 12.0 x10^3/uL (4.0-11.0) H Red Blood Count 4.34 x10^6/uL (4.30-5.70) Hemoglobin 13.6 g/dL (13.0-17.5) Hematocrit 40.4 % (39.0-53.0) Mean Corpuscular Volume 93 fL (79-100) Mean Corpuscular Hemoglobin 31 pg (25-35) Mean Corpuscular Hemoglobin Concent 34 g/dL (31-37) Red Cell Distribution Width 12.5 % (11.5-14.5) Platelet Count 260 x10^3/uL (140-400) Neutrophils (%) (Auto) 51 % (31-73) Lymphocytes (%) (Auto) 37 % (24-48) Monocytes (%) (Auto) 10 % (0-9) H Eosinophils (%) (Auto) 1 % (0-3) Basophils (%) (Auto) 1 % (0-3) Neutrophils # (Auto) 6.1 x10^3/uL (1.8-7.7) Lymphocytes # (Auto) 4.5 x10^3/uL (1.0-4.8) Monocytes # (Auto) 1.2 x10^3/uL (0.0-1.1) H Eosinophils # (Auto) 0.2 x10^3/uL (0.0-0.7) Basophils # (Auto) 0.1 x10^3/uL (0.0-0.2) Sodium Level 136 mmol/L (136-145) Potassium Level 4.7 mmol/L (3.5-5.1) Chloride Level 100 mmol/L (98-107) Carbon Dioxide Level 31 mmol/L (21-32) Anion Gap 5 (6-14) L Blood Urea Nitrogen 19 mg/dL (8-26) Creatinine 1.0 mg/dL (0.7-1.3) Estimated GFR (Cockcroft-Gault) 80.4 BUN/Creatinine Ratio 19 (6-20) Glucose Level 91 mg/dL (70-99) Calcium Level 9.2 mg/dL (8.5-10.1) Total Bilirubin 0.7 mg/dL (0.2-1.0) Aspartate Amino Transferase (AST) 43 U/L (15-37) H Alanine Aminotransferase (ALT) 36 U/L (16-63) Alkaline Phosphatase 65 U/L (46-116) Total Protein 7.5 g/dL (6.4-8.2) Albumin 4.2 g/dL (3.4-5.0) Albumin/Globulin Ratio 1.3 (1.0-1.7) Lipase 45 U/L (73-393) L Ethyl Alcohol Level < 10 mg/dL (0-10) Laboratory Tests 05/26/20 22:20 Laboratory Tests 05/26/20 22:20 Vital Signs: Vital Signs Date Time Temp Pulse Resp B/P (MAP) Pulse Ox O2 Delivery O2 Flow Rate FiO2 05/26/20 21:28 98.4 100 16 147/97 (114) 97 98.4 EKG: EKG: [] Radiology/Procedures: Radiology/Procedures: []PROCEDURE: CT ANGIOGRAPHY CHEST Study: CT CHEST WITH CONTRAST - PULMONARY ANGIOGRAM History: Coughing blood Comparison: Chest radiograph 11/16/2019 Technique: Helical CT of the chest performed after the administration of 100 mL Omnipaque 350 intravenous contrast and timed for angiographic evaluation of the pulmonary arteries per PE protocol. Coronal and sagittal 3D MIP reformations were obtained. One or more of the following individualized dose reduction techniques were utilized for this examination: 1. Automated exposure control 2. Adjustment of the mA and/or kV according to patient size 3. Use of iterative reconstruction technique. Findings: Pulmonary Arteries: Contrast bolus is adequate. No acute pulmonary embolism. Heart/Systemic Vasculature: The heart is normal in size. No pericardial effusion. Thoracic aorta is normal in caliber. Mediastinum: No mediastinal or hilar lymphadenopathy. There is diffuse esophageal wall thickening. Lungs: There is mosaic attenuation, greatest in the lower lobes. There is a 7 mm geographic subpleural groundglass opacity in the anterior right upper lobe. Airway flor are thickened. No pleural effusion. Neck/Axilla/Body Wall: Normal. Upper Abdomen: 1.5 cm right adrenal adenoma. Bones: Multiple old healed left posterior rib fractures. There are surgical changes of the left humeral head. IMPRESSION: 1. No acute pulmonary embolism. 2. Diffuse esophageal wall thickening. This could be seen with esophagitis or malignancy. Correlation could be made with endoscopy. 3. Mosaic attenuation, bronchial wall thickening, and small subpleural groundglass opacity in the right upper lobe. Findings are nonspecific but likely related to small airways disease. In a high risk patient, 6-12 month follow-up CT could be obtained to ensure stability/resolution of groundglass nodule. 2017 Fleischner Society guidelines for management of incidental pulmonary nodules in adults over 35 years old. Radiology. Published online:?July 01, 2016 SUBSOLID NODULES Single < 6mm - No routine follow-up Single > 6mm - CT at 6-12 months to confirm persistence, the CT every 2 years until 5 years. Comment: In certain suspicious nodules <6mm, consider follow-up at 2 and 4 years. If solid components or growth develops, consider resection. *Clinical risk - These guidelines for nodule management are based on estimation of the individual risk of malignancy. It is important to consider nodule size and morphology as well as smoking history, exposure to other carcinogens, emphysema, fibrosis, upper lobe location, family history of lung cancer, age, and sex is assessing clinical risk. For purposes of these guidelines it is recommended that risk be assigned according to the categories proposed by the [employer]. Low risk (less than 5%) - young age, less smoking, smaller nodule size, regular margins and location other than upper lobe. High risk (greater than 5%) - older age, heavy smoking, larger nodule size, irregular or spiculated margins and upper lobe location. Electronically signed by: Rachael Ledezma MD (05/26/2020 11:23 PM) [id number] DICTATED and SIGNED BY: RACHAEL LEDEZMA MD DATE: 05/26/20 [id number] 0 Course & Med Decision Making: Course & Med Decision Making Pertinent Labs and Imaging studies reviewed. (See chart for details) This is a 44-year-old male patient presented to the ED today complaining of coughing up brownish discharge since yesterday. CBC CMP with no acute findings. Refused COVID-[address] angio was obtained to rule out PE. CT negative for PE. Noted for diffuse esophageal wall thickening. This could be seen with esophagitis or malignancy. Correlation could be made with endoscopy, informed patient to follow-up with GI for endoscopy. CT also noted for mosaic attenuation, bronchial wall thickening, and small subpleural groundglass opacity in the right upper lobe. Findings are nonspecific but likely related to small airways disease. In a high risk patient, 6-12 month follow-up CT could be obtained to ensure stability/resolution of groundglass nodule. This is a high risk patient. Recommended following up with primary care doctor for repeat CAT scan Discharge to home. Encouraged to consider smoking cessation. Maximo Disclaimer: Dragon Disclaimer: This electronic medical record was generated, in whole or in part, using a voice recognition dictation system. Departure Departure Impression: Primary Impression: Esophagitis Additional Impressions: Smoking addiction Cough Disposition: 01 DC HOME SELF CARE/HOMELESS Condition: STABLE Referrals: MEGAN FLORES MD (PCP) follow up next week ODETTE HUTCHINSON MD follow up next week for esophagitis Patient Instructions: Esophagitis, Smoking Cessation Additional Instructions: You were evaluated in the emergency room and noted to have esophagitis. We put you on omeprazole. Take it as prescribed. We highly recommend you follow-up with the provided GI doctor to get further testing for this which includes an endoscopy. You were also noted for small mass in your chest. This needs to be followed up with your primary care doctor and they can do a repeat CAT scan in 6-12 months. Consider smoking cessation. Scripts Ondansetron (ONDANSETRON ODT) 4 Mg Tab.rapdis 1 TAB PO PRN Q6-8HRS, #16 TAB Prov: DONELL MELCHOR APRN 05/27/20 Omeprazole (OMEPRAZOLE) 20 Mg Tablet. 1 TAB PO DAILY, #90 TAB 1 Refill Prov: DONELL MELCHOR APRN 05/27/20 DONELL MELCHOR APRN May 27, 2020 00:10
--- NOTE | 2020-05-28 09:37 | NUR ---
IP: Attempted to contact pt concerning COVID results. Left message with for pt to return the call.
== END 2020-05-27 00:32 | disposition home or self-care (01) ==
LOC: ER 20:46
DX: K20.90 Esophagitis, unspecified without bleeding (principal); Z20.828 Contact with and (suspected) exposure to other viral communicable diseases; E78.00 Pure hypercholesterolemia, unspecified; I10 Essential (primary) hypertension; N40.0 Benign prostatic hyperplasia without lower urinary tract symptoms; F17.200 Nicotine dependence, unspecified, uncomplicated
CPT/HCPCS: 36415; 71275; 80053; 83690; 85025; 99285; C9803; G0480; Q9967; U0003

== ENCOUNTER → 2020-09-01 | Outpatient (CLI) | payer OTHER ==
[~2020-09-01] MED LIST changes: +OMEP20TA8 PO; +ONDA4TAB12 PO
--- NOTE | 2020-09-01 15:53 | KCIC ---
Exam performed: 3 views left knee. Clinical indication: Left knee pain Date of Service: 09/01/2020 Comparison: None available 3 views [LEFT] knee findings: Normal alignment of the medial and lateral tibiofemoral joint is preserved. The patellofemoral joint appears unremarkable. The articular margins are smooth. There is no fracture or dislocation. Evidence of calcific loose body or joint effusion is absent. Impression: 1. No acute radiographic abnormality seen. Electronically signed by: Megha Resendiz MD (09/01/2020 3:50 PM) [id number]
== END ==
LOC: KCIC 14:30
PROVIDERS: ATTEND Family Medicine
DX: M17.0 Bilateral primary osteoarthritis of knee (principal)
CPT/HCPCS: 73562

== ENCOUNTER 2020-12-09 06:54 | Day surgery (SDC) | payer OTHER ==
[~2020-12-09] VITALS: Ht 170.2 cm; Wt 170.0 kg
[~2020-12-09 06:54] MED LIST changes: +ASPI-630 PO; +CYCL5TAB PO; +DILT120C99 PO; +GABA600T7 PO; +HYDROmorphone 2 MG/ML VIAL IVP PRN; +IPRA4AER IH; +IV RINGERS,LACTATED 1000ML 1,000 ML IV SCH; +LOSA100T14 PO; +OXYC1TAB22 PO; +PRAV40TA2 PO; +PROCHLORPERAZINE 10 MG/2 ML VIAL. IVP PRN; +TAMS0.4C97 PO; +fentaNYL PF VIAL 100 MCG/2 ML VIAL IVP PRN
[2020-12-09] MEDS ORDERED: MIDAZOLAM HCL/PF 2 MG/2 ML VIAL. ONE (07:08)
[2020-12-09] MEDS ORDERED: fentaNYL PF VIAL 250 MCG/5 ML VIAL ONE (07:09)
[2020-12-09] MEDS ORDERED: SUCCINYLCHOLINE 200 MG/10 ML VIAL. ONE (07:12)
[2020-12-09] MEDS ORDERED: PROPOFOL 10 MG/ML (20ML) VIAL. IV ONE (07:17)
[2020-12-09] MEDS ORDERED: ONDANSETRON PF 4 MG/2 ML VIAL. ONE (07:17)
[2020-12-09] MEDS ORDERED: DEXAMETHASONE SOD PHOS 4 MG/ML VIAL ONE (07:17)
[2020-12-09] MEDS ORDERED: LIDOCAINE 1% PF 5 ML VIAL. ONE (07:17)
[2020-12-09] MEDS ORDERED: BUPIVACAINE-EPI 0.5%-1:200000 MPF 30 ML VIAL. ONE (07:19)
[2020-12-09 07:22] VITALS: BP 141/91
--- NOTE | 2020-12-09 07:25 | DISCH ---
DISCHARGE INSTRUCTIONS Condition on Discharge Condition on Discharge: Stable Activity After Discharge Activity Instructions for Disc: Progressive ambulation (Advance activity sl owly, too much activity will not cause injury but will cause increased pain and swelling and throbbing so elevate extremity and ice when not walking) Lifting Instructions after Dis: No heavy lifting Weight Bearing Status after Di: As tolerated Diet after Discharge Diet after Discharge: Regular Wound Incision Care Wound/Incision Care: Ice to area for comfort, Keep wound elevated, Change dressing (Remove dressing in 2 days may then shower no soaking until sutures removed) Contacting the [facility] after DC Call your doctor for: Concerns you may have (Watch for increasing swelling in calf and foot that does not resolve along with deep calf tenderness, may be a sign of blood clot) Follow-Up Follow up with: Dr. Carlton 1 week LUIS DEMPSEY MD Dec 09, 2020 07:25
[2020-12-09] MEDS ORDERED: MORPHINE SULFATE 2 MG/ML INJ. ONE (08:48)
[2020-12-09] MEDS ORDERED: PROCHLORPERAZINE 10 MG/2 ML VIAL. ONE (08:48)
[2020-12-09] MEDS: MORPHINE SULFATE 2 MG/ML INJ. IVP PRN ×2 (08:50→09:03)
[2020-12-09 09:10] VITALS: BP 121/68
--- NOTE | 2020-12-09 15:45 | PDOC4 ---
Operative Note Operative Note Date of surgery: 12/09/2020 Preoperative diagnosis: Medial meniscus tear left knee Postoperative diagnosis: Same with displaceable tear posterior horn medial meniscus Operative procedure: Left knee arthroscopy partial medial meniscectomy Surgeon: Nathan Assist: Jerome dyson Anesthesia: General Estimated blood loss: 2 cc Complications: None Operative indications: Please see her preoperative orthopedic clinic note for detailed operative indications and note that we covered the possibility of partial meniscectomy and the fact that I cannot undo any degenerative changes in the knee. We did discuss the possibility of continued pain infection nerve or blood vessel damage medical or other anesthetic risks including blood clots all his questions were answered he wishes to proceed with surgical evaluation and treatment Operative text: Patient was identified procedure verified patient placed in the supine position on the operating table. After adequate amounts of general anesthesia were administered the left lower extremity was prepped and draped in standard sterile fashion with a thigh tourniquet and after timeout was performed patient procedure identified and verified the left lower extremity was exsanguinated by Esmarch bandage tourniquet inflated to 300 mmHg a lateral portal was established medial portal established using spinal needle localization and the knee joint was systematically examined. He had good condition of the patellofemoral joint and a displaceable tear of the posterior horn of medial meniscus trimmed back to stable tissue using arthroscopic punch and shaver. ACL was noted to be intact. Lateral compartment was noted to be in good condition with no meniscal abnormality and minimal chondromalacia. The knee was again examined completely arthroscopically to ensure no further cartilage fragments or loose bodies were present. Knee joint was drained of arthroscopic fluid portals closed with nylon suture and sterile dressings were applied. Toes were noted be warm pink following deflation of the tourniquet. Patient was returned to recovery room in stable condition having tolerated procedure well. Jerome dyson was present for the procedure assisted in patient positioning prepping draping retraction positioning closure and dressings LUIS DEMPSEY MD Dec 09, 2020 15:45
== END 2020-12-09 10:09 | disposition home or self-care (01) ==
LOC: SURG 06:54
PROVIDERS: ATTEND Orthopaedic Surgery
DX: S83.242A Other tear of medial meniscus, current injury, left knee, initial encounter (principal); Z20.822 Contact with and (suspected) exposure to COVID-19; I10 Essential (primary) hypertension; E78.00 Pure hypercholesterolemia, unspecified; J44.9 Chronic obstructive pulmonary disease, unspecified; M19.90 Unspecified osteoarthritis, unspecified site; F41.9 Anxiety disorder, unspecified; F17.210 Nicotine dependence, cigarettes, uncomplicated; Z79.899 Other long term (current) drug therapy; Z98.890 Other specified postprocedural states; X58.XXXA Exposure to other specified factors, initial encounter; Y93.89 Activity, other specified; Y92.89 Other specified places as the place of occurrence of the external cause
CPT/HCPCS: 29881; 87426; 97116; 97161; A4930; J0330; J0690; J0780; J1100; J2250; J2270; J2405; J2704; J3010; J3490; A4223